=== PATIENT | male | born 1955 | race Caucasian/White ===

== ENCOUNTER 2018-07-03 12:37 | Emergency (ER) | payer BC ==
[~2018-07-03] VITALS: Ht 167.6 cm; Wt 77.0 kg
[2018-07-03] MEDS ORDERED: LISINOPRIL10 MG PO (12:52)
[2018-07-03] MEDS ORDERED: OMEPRAZOLE20 MG PO (12:52)
[2018-07-03 14:05] VITALS: BP 145/90
== END 2018-07-03 14:05 | disposition home or self-care (01) | DRG 561 ==
LOC: ED 12:37
PROC: 0PP Upper Bones, Removal (ICD-10-PCS; principal; 2018-07-03)
DX: S62.637D Displaced fracture of distal phalanx of left little finger, subsequent encounter for fracture with routine healing (principal); W54.0XXS Bitten by dog, sequela; I10 Essential (primary) hypertension; K21.9 Gastro-esophageal reflux disease without esophagitis